=== PATIENT | male | born 1990 | race Caucasian/White ===

== ENCOUNTER 2018-10-13 10:40 | Emergency (ER) | payer OTHER ==
[2018-10-13] MEDS ORDERED: Diphtheria,Pertussis(Acell),Tetanus Vaccine 0.5 ML Syringe IM ONE (10:44)
--- NOTE | 2018-10-13 10:44 | EDM.PDOC ---
ED HPI GENERAL MEDICAL PROBLEM - General Chief Complaint: Laceration Stated Complaint: INJURY TO HAND Time Seen by Provider: 10/13/18 10:43 Source of Information: Reports: Patient History Limitations: Reports: No Limitations - History of Present Illness INITIAL COMMENTS - FREE TEXT/NARRATIVE: HISTORY AND PHYSICAL: History of present illness: Patient is a 27 showed male who presents to the emergency room with complaints of a laceration to the base of his left second digit. He states he was using a saw when his hand slipped resulting in this laceration. He is able to bend and extend the finger without any difficulty. Unsure of his last tetanus. Bleeding is well-controlled with minimal pressure. Review of systems: As per history of present illness and below otherwise all systems reviewed and negative. Past medical history: As per history of present illness and as reviewed below otherwise noncontributory. Surgical history: As per history of present illness and as reviewed below otherwise noncontributory. Social history: See social history for further information Family history: As per history of present illness and as reviewed below otherwise noncontributory. Physical exam: General: Well-developed and well-nourished 27 showed male. Alert and oriented. Nontoxic appearing and in no acute distress. HEENT: Atraumatic, normocephalic, pupils equal and reactive bilaterally, negative for conjunctival pallor or scleral icterus, mucous membranes moist, TMs normal bilaterally, throat clear, neck supple, nontender, trachea midline. No drooling or trismus noted. No meningeal signs. No hot potato voice noted. Lungs: Clear to auscultation, breath sounds equal bilaterally, chest nontender. Heart: S1S2, regular rate and rhythm without overt murmur Abdomen: Soft, nondistended, nontender. Negative for masses. Negative for costovertebral tenderness. Pelvis: Stable nontender. Genitourinary: Deferred. Rectal: Deferred. Skin: 3cm laceration to the lateral Murray between the second and third digit at the base of the second finger. No current bleeding noted. Otherwise skin is intact, warm, dry. No lesions or rashes noted. Extremities: Please see skin for details. Patient is able to flex and extend the digits on the left hand without any difficulty or deficits. Tendons appear to be intact. Capillary refill less than 3 seconds. Equal and strong grasp bilaterally. He is negative for cords or calf pain. Neurovascular unremarkable. Neuro: Awake, alert, oriented. Cranial nerves II through XII unremarkable. Cerebellum unremarkable. Motor and sensory unremarkable throughout. Exam nonfocal. Notes: 1% lidocaine was used to anesthetize the area. Wound wash was used to irrigate the lacerated area. Usual customary procedures were followed for suture placement. #7 5-0 chromic dissolvable suture, interrupted, placed without difficulty. Patient tolerated well. Nonstick dressing applied. Supportive care measures were reviewed and discussed. Voices understanding and is agreeable to plan of care. Denies any further questions or concerns at this time. Diagnostics: X-ray left index finger Therapeutics: Tdap, 1% lidocaine, wound care, nonstick dressing Prescription: Keflex, tramadol No. 15 Impression: Laceration Plan: 1. Keep the area clean and dry. Continue to monitor for signs of infection. 2. Tylenol and/or ibuprofen as needed for pain management. 3. Please follow-up with the general hand surgeon in the next 1-2 days. Return to the ED as needed and as discussed. Definitive disposition and diagnosis as appropriate pending reevaluation and review of above. left second finger Pain Score (Numeric/FACES): 5 - Related Data Allergies Allergy/AdvReac Type Severity Reaction Status Date / Time No Known Allergies Allergy Verified 10/13/18 10:43 Home Meds: Home Meds . [No Known Home Meds] 09/12/16 [History] Past Medical History - Past Health History Medical/Surgical History: Denies Medical/Surgical History HEENT History: Reports: None Cardiovascular History: Reports: None Respiratory History: Reports: None Gastrointestinal History: Reports: None Genitourinary History: Reports: None Musculoskeletal History: Reports: None Neurological History: Reports: None Psychiatric History: Reports: None Endocrine/Metabolic History: Reports: None Dermatologic History: Reports: None - Infectious Disease History Infectious Disease History: Reports: None - Past Surgical History HEENT Surgical History: Reports: None Cardiovascular Surgical History: Reports: None Respiratory Surgical History: Reports: None GI Surgical History: Reports: None Male Surgical History: Reports: None Neurological Surgical History: Reports: None Musculoskeletal Surgical History: Reports: None Dermatological Surgical History: Reports: None Social & Family History - Family History Family Medical History: Noncontributory - Caffeine Use Caffeine Use: Reports: Soda Caffeine Use Comment: 8 drinks/day ED ROS GENERAL - Review of Systems Review Of Systems: ROS reveals no pertinent complaints other than HPI. ED EXAM, SKIN/RASH Exam: See Below (See dictation) ED SKIN PROCEDURES - Laceration/Wound Repair 2nd left digit Lac/Wound length In cm: 3 Appearance: Subcutaneous, Linear Distal NVT: Neuro & Vascular Intact, No Tendon Injury Anesthetic Type: Local Local Anesthesia - Lidocaine (Xylocaine): 1% Plain Local Anesthetic Volume: 4cc Skin Prep: Chlorhexidine (Hibiciens) Saline Irrigation (cc's): 50 Exploration/Debridement/Repair: Wound Explored, No Foreign Material Found Closed with: Sutures Suture Size: other (5-0 Chromic) # of Sutures: 7 Suture Type: Interrupted, Simple Drain Placement: No Sterile Dressing Applied: Provider Tetanus Status Addressed: Yes Complications: No Course - Vital Signs Last Recorded V/S: Last Vital Signs Temp 97.3 F 10/13/18 10:43 Pulse 77 10/13/18 10:43 Resp 18 10/13/18 10:43 BP 134/103 H 10/13/18 10:43 Pulse Ox 97 10/13/18 10:43 - Orders/Labs/Meds Orders: Active Orders 24 hr Category Date Time Status Vaccines to be Administered [RC] PER UNIT ROUTINE Care 10/13/18 10:44 Active Fingers Second Digit Lt F1 [CR] Stat Exams 10/13/18 10:45 Taken Meds: Medications Discontinued Medications Generic Name Dose Route Start Last Admin Trade Name Freq PRN Reason Stop Dose Admin Diphtheria/Tetanus/Acell Pertussis 0.5 ml 10/13/18 10:44 10/13/18 11:11 Adacel IM 10/13/18 10:45 0.5 ml .ONCE ONE Administration Lidocaine HCl 5 ml 10/13/18 10:44 10/13/18 11:11 Xylocaine-Mpf 1% INJECT 10/13/18 10:45 5 ml ONETIME ONE Administration Departure - Departure Time of Disposition: 11:33 Disposition: Home, Self-Care 01 Clinical Impression: Laceration - Discharge Information Instructions: Laceration Care, Adult, [id number] Referrals: PCP,None [Primary Care Provider] - Forms: ED Department Discharge Additional Instructions: The following information is given to patients seen in the emergency department who are being discharged to home. This information is to outline your options for follow-up care. We provide all patients seen in our emergency department with a follow-up referral. The need for follow-up, as well as the timing and circumstances, are variable depending upon the specifics of your emergency department visit. If you don't have a primary care physician on staff, we will provide you with a referral. We always advise you to contact your personal physician following an emergency department visit to inform them of the circumstance of the visit and for follow-up with them and/or the need for any referrals to a consulting specialist. The emergency department will also refer you to a specialist when appropriate. This referral assures that you have the opportunity for follow-up care with a specialist. All of these measure are taken in an effort to provide you with optimal care, which includes your follow-up. Under all circumstances we always encourage you to contact your private physician who remains a resource for coordinating your care. When calling for follow-up care, please make the office aware that this follow-up is from your recent emergency room visit. If for any reason you are refused follow-up, please contact the [facility] Emergency Department at and asked to speak to the emergency department charge nurse. [facility] Primary Care [address] [place] [id number] [facility] Specialty Care - Plastic Surgery Professional Building [address] [place] [address], [address] [place] [address] [address] 1. Keep the area clean and dry. Continue to monitor for signs of infection. Sutures should dissolve on their own, please avoid submerging the hand in water for long periods of time as this will increase/shorten the length that the sutures will support the laceration. The sutures have not dissolved in 7-10 days , please return and we will remove them for you without charge. 2. Take the antibiotic as directed. Tylenol and/or ibuprofen as needed for pain management. Tramadol for moderate to severe pain. This medication may cause drowsiness a do not take it will driving her needing to be functioning outside the house. 3. Please follow-up with the general hand surgeon in the next 1-2 days. Return to the ED as needed and as discussed. - My Orders Last 24 Hours: My Active Orders 10/13/18 10:44 Vaccines to be Administered [RC] PER UNIT ROUTINE 10/13/18 10:45 Fingers Second Digit Lt F1 [CR] Stat - Assessment/Plan Last 24 Hours: My Active Orders 10/13/18 10:44 Vaccines to be Administered [RC] PER UNIT ROUTINE 10/13/18 10:45 Fingers Second Digit Lt F1 [CR] Stat
[2018-10-13 12:35] VITALS: BP 108/62
--- NOTE | 2018-10-13 13:50 | CR ---
EXAM DATE: 10/13/18 PATIENT'S AGE: 27 Patient: TAWANNA BIGGS Facility: [facility] . Site : 1990 Study: XRay-Extremity Left FINGER [id number]/5/2019 11:12:54 AM Ordering Physician: Doctor Burns Final Report: INDICATION: INJURY HISTORY: Injury. COMPARISON: None. TECHNIQUE: Left 2nd finger, 3 views. FINDINGS: There is a soft tissue defect overlying the left 2nd proximal phalanx, compatible with a laceration. No underlying fracture is identified. No radiopaque foreign body. The carpus is intact. There is no articular erosion. There is no periarticular osteopenia. IMPRESSION: 1. Soft tissue defect overlying the left 2nd proximal phalanx, compatible with a laceration. 2. No associated fracture. Dictated by Domingo Shukla MD @ 10/13/2018 11:31:46 AM Dictated by: Domingo Shukla MD @ 10/13/2018 11:31:55 Signed by: Domingo Shukla MD @10/13/2018 11:31:55 AM (Electronic Signature) Report Signed by Proxy. V[facility] BROTHERS MEDICAL CENTERMalika
== END 2018-10-13 12:35 | disposition home or self-care (01) ==
LOC: MW.ED 10:40
DX: S61.412A Laceration without foreign body of left hand, initial encounter (principal); W27.0XXA Contact with workbench tool, initial encounter; Z23 Encounter for immunization
CPT/HCPCS: 12002; 73140; 90471; 90715; 99283; J2001; 99282

== ENCOUNTER 2018-12-03 11:16 | Emergency (ER) | payer OTHER ==
[2018-12-03 11:37] VITALS: BP 129/81
--- NOTE | 2018-12-03 11:52 | EDM.PDOC ---
ED HPI GENERAL MEDICAL PROBLEM - General Chief Complaint: Skin Complaint Stated Complaint: SORE ON LT INDEX FINGER Time Seen by Provider: 12/03/18 11:45 - History of Present Illness INITIAL COMMENTS - FREE TEXT/NARRATIVE: HISTORY AND PHYSICAL: History of present illness: Patient 28-year-old male had a recent injury to the second digit of his right hand was sutured and was concerned about possible postop infection he's had no fever chills nausea vomiting or other complaints. Review of systems: As per history of present illness and below otherwise all systems reviewed and negative. Past medical history: As per history of present illness and as reviewed below otherwise noncontributory. Surgical history: As per history of present illness and as reviewed below otherwise noncontributory. Social history: No reported history of drug or alcohol abuse. Family history: As per history of present illness and as reviewed below otherwise noncontributory. Physical exam: HEENT: Atraumatic, normocephalic, pupils reactive, negative for conjunctival pallor or scleral icterus, mucous membranes moist, throat clear, neck supple, nontender, trachea midline. Lungs: Clear to auscultation, breath sounds equal bilaterally, chest nontender. Heart: S1S2, regular, negative for clicks, rubs, or JVD. Abdomen: Soft, nondistended, nontender. Negative for masses or hepatosplenomegaly. Negative for costovertebral tenderness. Pelvis: Stable nontender. Genitourinary: Deferred. Rectal: Deferred. Extremities: Wound has healed well there is no erythema and no warmth dictation no point tenderness neurovascular exam in CMS are unremarkable there is no tendon findings Neuro: Awake, alert, oriented. Cranial nerves II through XII unremarkable. Cerebellum unremarkable. Motor and sensory unremarkable throughout. Exam nonfocal. Diagnostics: None Therapeutics: None Impression: #1 medical screening exam Definitive disposition and diagnosis as appropriate pending reevaluation and review of above. left 2nd finger (index) Pain Score (Numeric/FACES): 1 - Related Data Allergies Allergy/AdvReac Type Severity Reaction Status Date / Time No Known Allergies Allergy Verified 12/03/18 11:34 Home Meds: Home Meds . [No Known Home Meds] 09/12/16 [History] Past Medical History - Past Health History Medical/Surgical History: Denies Medical/Surgical History HEENT History: Reports: None Cardiovascular History: Reports: None Respiratory History: Reports: None Gastrointestinal History: Reports: None Genitourinary History: Reports: None Musculoskeletal History: Reports: None Neurological History: Reports: None Psychiatric History: Reports: None Endocrine/Metabolic History: Reports: None Dermatologic History: Reports: None - Infectious Disease History Infectious Disease History: Reports: Chicken Pox - Past Surgical History HEENT Surgical History: Reports: None Cardiovascular Surgical History: Reports: None Respiratory Surgical History: Reports: None GI Surgical History: Reports: None Male Surgical History: Reports: None Neurological Surgical History: Reports: None Musculoskeletal Surgical History: Reports: None Dermatological Surgical History: Reports: None Social & Family History - Family History Family Medical History: Noncontributory - Tobacco Use Smoking Status *Q: Never Smoker - Caffeine Use Caffeine Use: Reports: Soda Caffeine Use Comment: 8 drinks/day - Recreational Drug Use Recreational Drug Use: No ED ROS GENERAL - Review of Systems Review Of Systems: ROS reveals no pertinent complaints other than HPI. ED EXAM, SKIN/RASH Exam: See Below (See dictation) Course - Vital Signs Last Recorded V/S: Last Vital Signs Temp 35.7 C 12/03/18 11:34 Pulse 70 12/03/18 11:34 Resp 18 12/03/18 11:34 BP 129/81 12/03/18 11:34 Pulse Ox 97 12/03/18 11:34 Departure - Departure Time of Disposition: 11:51 Disposition: Home, Self-Care 01 Condition: Good Clinical Impression: Encounter for medical screening examination - Discharge Information Referrals: PCP,None [Primary Care Provider] - Additional Instructions: The following information is given to patients seen in the emergency department who are being discharged to home. This information is to outline your options for follow-up care. We provide all patients seen in our emergency department with a follow-up referral. The need for follow-up, as well as the timing and circumstances, are variable depending upon the specifics of your emergency department visit. If you don't have a primary care physician on staff, we will provide you with a referral. We always advise you to contact your personal physician following an emergency department visit to inform them of the circumstance of the visit and for follow-up with them and/or the need for any referrals to a consulting specialist. The emergency department will also refer you to a specialist when appropriate. This referral assures that you have the opportunity for followup care with a specialist. All of these measure are taken in an effort to provide you with optimal care, which includes your followup. Under all circumstances we always encourage you to contact your private physician who remains a resource for coordinating your care. When calling for followup care, please make the office aware that this follow-up is from your recent emergency room visit. If for any reason you are refused follow-up, please contact the [facility] emergency department at and asked to speak to the emergency department charge nurse. Follow-up primary medical doctor as needed as discussed return as needed as discussed
== END 2018-12-03 11:59 | disposition home or self-care (01) ==
LOC: MW.ED 11:16
DX: S61.210D Laceration without foreign body of right index finger without damage to nail, subsequent encounter (principal); X58.XXXD Exposure to other specified factors, subsequent encounter
CPT/HCPCS: 99282

== ENCOUNTER 2022-01-21 12:19 | Emergency (ER) | payer SELFPAY ==
[2022-01-21 13:35] VITALS: BP 102/65; PULSE 56
== END 2022-01-21 13:33 | disposition home or self-care (01) ==
LOC: MW.ED 12:19
DX: R09.1 Pleurisy (principal); K04.7 Periapical abscess without sinus; Z79.899 Other long term (current) drug therapy
CPT/HCPCS: 71045; 71045-26; 99284-25

== ENCOUNTER 2022-07-31 23:02 | Emergency (ER) | payer SELFPAY ==
[2022-07-31] MEDS ORDERED: Ibuprofen 600 MG Tab PO ONE (23:35)
[2022-07-31] MEDS ORDERED: Lidocaine 2% Viscous Solution 15 ML UD PO ONE (23:42)
[2022-07-31 23:57] VITALS: BP 131/86; PULSE 81
== END 2022-07-31 23:57 | disposition home or self-care (01) ==
LOC: MW.ED 23:02
DX: K02.9 Dental caries, unspecified (principal)
CPT/HCPCS: 99282; A9270

== ENCOUNTER 2022-09-15 09:38 | Emergency (ER) | payer SELFPAY ==
[2022-09-15 10:36] VITALS: BP 118/80; PULSE 89
== END 2022-09-15 10:32 | disposition home or self-care (01) ==
LOC: MW.ED 09:38
DX: K04.7 Periapical abscess without sinus (principal)
CPT/HCPCS: 99283

== ENCOUNTER 2023-07-31 14:10 | Emergency (ER) | payer SELFPAY ==
[2023-08-01 09:47] VITALS: BP 127/69; PULSE 84
== END 2023-07-31 15:17 | disposition home or self-care (01) ==
LOC: MW.ED 14:10
DX: M27.2 Inflammatory conditions of jaws (principal)
CPT/HCPCS: 99282; 99283

== ENCOUNTER 2023-09-13 13:43 | Emergency (ER) | payer SELFPAY ==
[2023-09-13 14:38] LABS: BASOPHILS ABSOLUTE AUTO 0.05 K/uL (0.00-0.20); BASOPHILS PERCENT AUTO 0.6 % (0.0-1.0); EOSINOPHILS ABSOLUTE AUTO 0.52 K/uL (0.00-0.45); EOSINOPHILS PERCENT AUTO 6.5 % (0.0-6.0); HEMATOCRIT 46.9 % (42.0-52.0); HEMOGLOBIN 16.4 g/dL (14.0-18.0); IMMATURE GRAN ABSOLUTE AUTO 0.01 K/uL (0.00-0.05); IMMATURE GRAN PERCENT AUTO 0.1 % (0.0-0.4); LYMPHOCYTES ABSOLUTE AUTO 2.49 K/uL (1.00-4.80); LYMPHOCYTES PERCENT AUTO 31.2 % (24.0-44.0); MEAN CORPUSCULAR HEMOGLOBIN 34.2 pg (28.0-32.0); MEAN CORPUSCULAR VOLUME 97.7 fL (83.0-99.0); MEAN PLATELET VOLUME 10.4 fL (9.4-12.4); MONOCYTES ABSOLUTE AUTO 0.91 K/uL (0.00-0.80); MONOCYTES PERCENT AUTO 11.4 % (0.0-8.0); NEUTROPHILS ABSOLUTE AUTO 3.99 K/uL (1.80-7.70); NEUTROPHILS PERCENT AUTO 50.2 % (41.0-71.0); PLATELET COUNT,PLT 203 K/uL (150-400); WHITE BLOOD CELL COUNT,WBC 7.97 K/uL (3.9-11.3)
[2023-09-13] MEDS: Sodium Chloride 0.9% 10 ML Syringe FLUSH PRN (14:40)
[2023-09-13] MEDS: Sodium Chloride 0.9% 2.5 ML Syringe FLUSH PRN (14:41)
[2023-09-13] MEDS: Ketorolac 30 MG/ML SDV IVPUSH STA (14:41)
[2023-09-13] MEDS: Sodium Chloride 0.9% 1,000 ML IV STA (14:41)
[2023-09-13 15:02] VITALS: BP 131/87
[2023-09-13 15:07] LABS: A/G RATIO 1.4 (0.9-1.6); ALBUMIN 4.3 g/dL (3.4-5.0); BILIRUBIN TOTAL 0.5 mg/dL (0.2-1.0); CALCIUM 9.6 mg/dL (8.5-10.1); CARBON DIOXIDE,CO2 25.6 mmol/L (21.0-32.0); CREATININE 1.1 mg/dL (0.8-1.3); EST CRCL DRUG DOSING (CG) 96.76 mL/min; POTASSIUM,K 4.6 mmol/L (3.5-5.1); PROTEIN TOTAL,TP 7.4 g/dL (6.4-8.2)
[2023-09-13 16:02] VITALS: PULSE 85
== END 2023-09-13 16:02 | disposition home or self-care (01) ==
LOC: MW.ED 13:43
DX: R10.31 Right lower quadrant pain (principal)
CPT/HCPCS: 36415; 80053; 83690; 85025; 96361; 96374; 99284; J1885; J3490; J7030